=== PATIENT | male | born 1980 | race Caucasian/White ===

== ENCOUNTER 2025-01-03 03:55 | Day surgery (SDC) | payer OTHER ==
[2025-01-03] VITALS (194 sets, daily range): BP systolic 95–135; BP diastolic 50–82
[~2025-01-03] VITALS: Ht 185.4 cm; Wt 81.0 kg
[~2025-01-03 03:55] MED LIST: CLONIDINE0.1 MG PO; KLONOPIN2 MG PO; NALTREXONE50 MG PO
[2025-01-03] MEDS ORDERED: SODIUM CHLORIDE 0.9% 1,000 ML IV PRN ×2 (07:00→14:00)
--- NOTE | 2025-01-03 07:00 | NUR ---
Arrival & Pre-treatment Patient arrived to the ANR suite, identification and demographics confirmed. Patient to room 8, AAO, ambulatory, vitals obtained, ID/allergy/fall bands placed, changed into hospital gown, SEVEN hose, and non-slip socks. Procedure and timeline explained for treatment and discharge. All questions answered and the patient presents no concerns at this time.
[2025-01-03] MEDS ORDERED: diazePAM 5 MG/TAB PO PRN ×2 (07:30→08:30)
[2025-01-03] MEDS ORDERED: PANTOPRAZOLE SODIUM Sesquihydr 40 MG/TAB PO PRN (07:30)
[2025-01-03] MEDS ORDERED: FAMOTIDINE 20 MG/TAB PO PRN (07:30)
[2025-01-03] MEDS ORDERED: LACTATED RINGER'S 1,000 ML IV PRN ×2 (07:30→08:55)
[2025-01-03] MEDS ORDERED: ALBUTEROL SULFATE 2.5 MG VIAL IN PRN (07:30)
[2025-01-03] MEDS ORDERED: SCOPOLAMINE 1.5 MG DIS TD PRN (07:30)
[2025-01-03] MEDS ORDERED: cloNIDine HCL 0.1 MG/TAB PO PRN (07:30)
[2025-01-03] MEDS ORDERED: CYANOCOBALAMIN 500 MCG/TAB ( B12) PO PRN (07:30)
[2025-01-03] MEDS ORDERED: DEXMEDETOMIDINE HCL IN SODIUM 100 ML IV SCH (07:40)
--- NOTE | 2025-01-03 07:45 | NUR ---
telephoned with patient intake information including usage, dose, last dose/time taken and initial vital signs. Patient history and allergies reviewed with MD. Orders received for 10mg PO Valium and 0.3 mg PO Clonidine now. Will reassess per protocol in 1.5 hours and update MD with assessment and vitals. Patient medicated per MD orders. In addition to Clonidine and Valium, patient received 1000 mcg B12 PO, 20 mg Pepcid PO, and Scopolamine TD patch. Medication indication and education provided prior to administration.
[2025-01-03] MEDS ORDERED: ASCORBIC ACID 4,000 MG in SODIUM CHLORIDE 0.9% 1,000 ML IV SCH (08:00)
[2025-01-03 08:11] LABS: BASO% 0.3 % (0-3); EOS% 4.3 % (0-8); HEMATOCRIT 38.7 % (39.0-50.0); HEMOGLOBIN 13.3 g/dl (14.0-18.0); IMMATURE GRANULOCYTES 0.6 % (0.0-5.0); LYMPH% 35.5 % (15-41); MEAN CORPUSCULAR HGB CONC 34.4 g/dL CAL (32.0-36.0); MONO% 6.4 % (2-13); NEUT# 4.72 thou/uL (1.82-7.42); NEUT% 52.9 % (42-76); RED BLOOD COUNT 4.16 mill/uL (4.70-6.10); RED CELL DISTRI WIDTH 11.9 % (11.5-15.5)
--- NOTE | 2025-01-03 08:21 | NUR ---
Patient resting comfortably in bed. Easily aroused, maintains focus, and drifts back to sleep. No signs of active withdrawal or distress noted at this time. Continuous SPO2, rhythm, and respiratory monitoring initiated. IVF @ 250 mL/HR, room air, VSS.
[2025-01-03 08:36] LABS: ALBUMIN 4.1 g/dL (3.2-5.0); CREATININE 0.8 mg/dL (0.7-1.3)
[2025-01-03 08:40] LABS: BILIRUBIN, TOTAL 0.4 mg/dL (0.2-1.3); POTASSIUM 4.3 mmol/l (3.5-5.1)
[2025-01-03] MEDS ORDERED: SODIUM CHLORIDE 0.9% 250 ML IV PRN (08:55)
[2025-01-03] MEDS ORDERED: OCTREOTIDE ACETATE 100 MCG/VIAL SDV SC PRN (08:55)
[2025-01-03] MEDS ORDERED: SUCCINYLCHOLINE CHLORIDE 20 MG/ML 10ML VIAL IV PRN (08:55)
[2025-01-03] MEDS ORDERED: MIDAZOLAM HCL 2 MG/2 ML VIAL IV PRN ×3 (08:55→14:00)
[2025-01-03] MEDS ORDERED: cloNIDine HCL 0.1 MG/TAB VT PRN (08:55)
[2025-01-03] MEDS ORDERED: cloNIDine HYDROCHLORIDE 100 MCG/ML 10 ML INJ IV PRN (08:55)
[2025-01-03] MEDS ORDERED: THIAMINE HCL 100 MG/ML 2ML VIAL IV PRN (08:55)
[2025-01-03] MEDS ORDERED: ONDANSETRON HCl 4 MG/2 ML SDV IV PRN ×3 (08:55→19:00)
[2025-01-03] MEDS ORDERED: PROPOFOL 10 MG/ML 100ML VIAL IV PRN (08:55)
[2025-01-03] MEDS ORDERED: NALTREXONE HCL 50 MG/TAB VT PRN (08:55)
[2025-01-03] MEDS ORDERED: ROCURONIUM BROMIDE 10 MG/ML 5 ML VIAL IV PRN (08:55)
[2025-01-03] MEDS ORDERED: diazePAM 5 MG/TAB VT PRN (08:55)
[2025-01-03] MEDS ORDERED: LIDOCAINE HCL 1% (10MG/ML) 100 MG/10 ML MDV VT PRN ×2 (08:55)
[2025-01-03] MEDS ORDERED: DiphenhydrAMINE HCL 50 MG/ML SDV IV PRN (08:55)
[2025-01-03] MEDS ORDERED: MAGNESIUM SULFATE HEPTAHYDRATE 100 ML IV PRN (08:55)
[2025-01-03] MEDS ORDERED: POTASSIUM CHLORIDE 20 MEQ/100 ML BAG IV PRN (08:55)
[2025-01-03] MEDS ORDERED: PROPOFOL 100 ML IV PRN (08:55)
[2025-01-03] MEDS ORDERED: STERILE WATER FOR IRRIGATION 1,000 ML BTL IR PRN (08:55)
[2025-01-03] MEDS ORDERED: LIDOCAINE HCL 1% (10MG/ML) 100 MG/10 ML MDV IV PRN (08:55)
--- NOTE | 2025-01-03 09:48 | NUR ---
Patients vital signs within pre-treatment parameters for 1.5 hour recheck. No indication for additional Valium or Clonidine as patient is resting comfortably and vital signs are within range.
[2025-01-03] MEDS ORDERED: PHENYLEPHRINE HCL 10 MG in DEXTROSE 5% 250 ML IV SCH (10:00)
--- NOTE | 2025-01-03 10:45 | NUR ---
Induction Note Patient to ANR procedure room. Time out performed at 1045. Patient placed on monitors, Gwendolyn hugger, bilateral wrist restraints applied for ET tube protection. Versed 5mg given IV push at 1115. Tourniquet applied to RIGHT arm Lidocaine 100mg given at 1116 IV push followed by Rocoronium 10mg at 1117 IV push and held for 90 seconds. Propofol bolus of 160mg given at 1119 IV push. Succinylcholine 100mg given IV push at 1120. Smooth intubation with 7.5 ETT. Positive CO2. Positive Auscultation for air exchange. Patient placed on ventilator for spontaneous ventilation. Placed on Propofol IV drip at 1121. OG inserted. Positive air on auscultation. Positive gastric content. Stomach washed at this time.
--- NOTE | 2025-01-03 11:35 | NUR ---
OG close note Stomach washed at this time. Naltrexone 50 mg with Clonidine 0.1 mg via OG tube. OG will be clamped for 45 minutes.
--- NOTE | 2025-01-03 12:20 | NUR ---
OG open note OG open at this time. Gastric content draining into drainage bag. OG to drain for 45 minutes. Propofol will be titrated down based on patient.
--- NOTE | 2025-01-03 13:05 | NUR ---
OG close note Stomach washed at this time. Naltrexone 50 mg with Clonidine 0.1 mg via OG tube. OG will be clamped for 45 minutes.
[2025-01-03] MEDS ORDERED: NALTREXONE50 MG PO (13:48)
[2025-01-03] MEDS ORDERED: KLONOPIN2 MG PO (13:48)
[2025-01-03] MEDS ORDERED: CLONIDINE0.1 MG PO (13:48)
[2025-01-03] MEDS ORDERED: clonazePAM 1 MG/TAB PO PRN (14:00)
--- NOTE | 2025-01-03 14:35 | NUR ---
WAITING / NO CLOSE SN SPOKE WITH DR. BURR. NO ADDITIONAL MEDS ORDERED AT THIS TIME.
--- NOTE | 2025-01-03 16:30 | NUR ---
OG close note Stomach washed at this time. Naltrexone 12.5 mg with Clonidine 0 mg via OG tube. OG will be clamped for 45 minutes.
--- NOTE | 2025-01-03 17:15 | NUR ---
OG open note OG open at this time. Gastric content draining into drainage bag. OG to drain. Propofol will be titrated down based on patient.
--- NOTE | 2025-01-03 17:20 | NUR ---
Extubation note Closing medications given Benadryl 50mg IV push, Decadron 10mg IV push,Magnesium 4 grams IV, Zofran 8mg IV push, Octreotide 100mcg SC. Stomach washed out prior to extubation. Suctioned gastric content. OG removed. Patient extubated. Propofol Discontinued. Wrist restraints removed. Gwendolyn hugger Removed. See ANR Moderate sedate recovery record for further notes and assessment.
--- NOTE | 2025-01-03 17:42 | NUR ---
SN SPOKE WITH PATIENTS X- , FEBRUARY. UPDATE ON PATIENTS STATUS PROVIDED. INFORMED FEBRUARY THAT MATTHEW KENT RN WILL REACH OUT TO HER TOMORROW WITH A PATIENT UPDATE AND D/C TIME. DAQUAN VERBALIZED UNDERSTANDING.
--- NOTE | 2025-01-03 17:49 | NUR ---
TRANSER NOTE Patient transferred to medical-surgical unit. Report given to receiving nurse at bedside. Treatment, medications, I/O, IV access reviewed with RN. All questions answered. IVF to continue at 100 ml/hr, NC @ 2L, no adventitious breath sounds. Safety precautions in place, bed locked and in lowest position, call light in reach.
[2025-01-03] MEDS ORDERED: ACETAMINOPHEN 500 MG TAB PO PRN (19:00)
[2025-01-03] MEDS ORDERED: ACETAMINOPHEN 1,000 MG/100 ML VIAL IV PRN (19:00)
[2025-01-03] MEDS ORDERED: PROMETHAZINE HCL 25 MG in SODIUM CHLORIDE 0.9% 50 ML IV PRN (19:00)
[2025-01-03] MEDS ORDERED: KETOROLAC TROMETHAMINE 30 MG/ML SDV IV PRN (19:00)
[2025-01-03] MEDS ORDERED: PROMETHAZINE HCL 12.5 MG in SODIUM CHLORIDE 0.9% 50 ML IV PRN (19:00)
[2025-01-03] MEDS ORDERED: HALOPERIDOL LACTATE 5 MG/ML SDV IV PRN ×2 (19:00→19:55)
--- NOTE | 2025-01-03 19:30 | NUR ---
RECEIVED REPORT FROM ANR NURSE NORMA MCALLISTER. PT NOTE DLAYING IN BED SUPINE, SLEPEING AT THIS TIME. RM AIR. NURSING ASSESSMENT COMPLETED, IVF RUNNING PER EMAR. VSS. NO S/S OF DISTRESS. BED ALARM ON AND SAFETY PRECAUTIONS IN PLACE.
--- NOTE | 2025-01-03 20:39 | NUR ---
PT BEGAN TOSSING AND TURNING IN BED, STARTED MOANING AND GOANING. WHEN MENTAL RETARDATION NURSE CHECKED ON PT, PT ASKED "WHY AM I AWAKE?" INFOMRED PT HE IS IN RECOVERY NOW AND WAKING UP THROUGHOUT NIGHT IS NORMAL. PT THEN STATED "NO I WAS TOLD I'D SLEEP ALL DAY" INFOMRED PT THEY WERE PUT TO SLEEP DURING PROCEDURE BUT WILL NOT BE UNDER ANESTHIA FOR RECOVERY PORTION. DID ADMINISTERED PRN MED FOR LYNNE DUE TO PT PRESENTING LYNNE AND RESTLESS AT THE TIME. ASSISTED WITH REPOSITIONING PT IN BED ON LT SIDE, ENCOURAGED REST AND SLEEP. IVF RUNNING PER EMAR. NO S/S OF DISTRESS. BED ALARM ON AND SAFETY PRECAUTIONS IN PLACE.
[2025-01-03] MEDS ORDERED: PATIENT' OWN MED CONTROLLED 1 EA DOSE IV PRN (21:00)
[2025-01-03] MEDS ORDERED: cloNIDine HCL 0.1 MG/TAB PO SCH (23:00)
--- NOTE | 2025-01-04 | NUR ---
SCHEUDLED MEDS ADMINISTERED PER EMAR, PT TOLERATED WELL. PT C/O BACK PAIN PRN MED ADMISNITERED PER EMAR AND STAFF ASSISTED WITH RPEOSITIONING PT ONTO LT SIDE AND PILLOWS ADDED FOR COMFORT TO ASSIST WITH BACK PAIN. PT LAYING IN BED ON LT SIDE RESTING COMFORTABLY AT THIS TIME. VSS. NO S/S OF DISTRESS. CALL LIGHT WITHIN REACH, BED ALARM ON AND SAFETY PRECAUTIONS IN PLACE.
[2025-01-04 03:44] VITALS: BP 117/64
[2025-01-04] MEDS ORDERED: cloNIDine HCL 0.1 MG/TAB PO PRN (04:00)
[2025-01-04] MEDS ORDERED: clonazePAM 1 MG/TAB PO PRN ×2 (04:00→08:00)
[2025-01-04] MEDS ORDERED: NALTREXONE HCL 50 MG/TAB PO SCH (04:00)
--- NOTE | 2025-01-04 04:30 | NUR ---
ADMINSITERED SCHEDULED MEDS PER EMAR. PT TOLERATED WELL, DENIES ANY N/V/P. PT IS EASILY AROUSABLE, A/OX3. PT C/O MILD BACK PAIN. ADMISNITERED PRN MED FOR PAIN. PT REQUESTED TO USE URINAL. SOPHIA ASSISTED, PT VOIDED W/O DIFFICULTY. PT LAYING IN BED ON RT SIDE, IVF RUNNING PER EMAR. VSS. NO S/S IF DISTRESS. CALL LIGHT WITHIN REACH, BED ALARM ON AND SAFETY PRECAUTIONS IN PLACE.
[2025-01-04 07:08] LABS: BASO% 0.1 % (0-3); HEMATOCRIT 36.7 % (39.0-50.0); HEMOGLOBIN 12.5 g/dl (14.0-18.0); IMMATURE GRANULOCYTES 0.3 % (0.0-5.0); LYMPH% 11.9 % (15-41); MEAN CELL VOLUME 92.4 fL CALC (80.0-100.0); MEAN CORPUSCULAR HGB 31.5 pG CALC (26.0-32.0); MEAN CORPUSCULAR HGB CONC 34.1 g/dL CAL (32.0-36.0); MONO% 4.4 % (2-13); NEUT# 11.19 thou/uL (1.82-7.42); NEUT% 83.3 % (42-76); RED BLOOD COUNT 3.97 mill/uL (4.70-6.10); RED CELL DISTRI WIDTH 11.7 % (11.5-15.5)
[2025-01-04 07:29] LABS: ALBUMIN 3.3 g/dL (3.2-5.0); CREATININE 0.7 mg/dL (0.7-1.3); MAGNESIUM 2.3 mg/dL (1.6-2.3); POTASSIUM 4.3 mmol/l (3.5-5.1); TOTAL PROTEIN 6.1 g/dL (6.3-8.2)
[2025-01-04 07:39] LABS: BILIRUBIN, TOTAL 0.6 mg/dL (0.2-1.3)
--- NOTE | 2025-01-04 07:59 | NUR ---
patient resting in bed; room air; breathing unlabored; denied any n/d/v at this time; no s.s of distress;iv site clean and intact running with Lr @100; personal items in anr locker; head to toe completed; encouraged to eat breakfast; tolerated medications with no issues; call light within reach; bed in lowest postion; bed alarm actiavted; labs and status of patient was called to provider; no complaints at this time
[2025-01-04] MEDS ORDERED: cloNIDine HCL 0.1 MG/TAB PO SCH (08:00)
[2025-01-04] MEDS ORDERED: PANTOPRAZOLE SODIUM Sesquihydr 40 MG/TAB PO SCH (08:00)
[2025-01-04] MEDS ORDERED: ACETAMINOPHEN 325 MG/TAB PO SCH (08:00)
[2025-01-04 08:17] VITALS: BP 110/67
[2025-01-04] MEDS ORDERED: ACETAMINOPHEN 500 MG TAB PO PRN (09:00)
[2025-01-04] MEDS ORDERED: Cholecalciferol 2,000 UNIT/TAB PO PRN (09:00)
[2025-01-04] MEDS ORDERED: MAGNESIUM OXIDE 400 MG/TAB PO PRN (09:00)
--- NOTE | 2025-01-04 09:10 | NUR ---
notified provider that patient had some moments of sneeezing and moisture on face; provider aware no new orders at this time
--- NOTE | 2025-01-04 12:08 | NUR ---
patient a/o x3; room air; breathing unlabored; dneied any pain; jim garces n/d/v at this time; no complaits; educated to try to eat some lunch; iv site clean and intact running with ns @100; call light within reach,verbalized understanding on how to use, personal items in anr locker; bed in lowest postion; saftey measures in place
--- NOTE | 2025-01-04 12:55 | NUR ---
patient vaughn getting dressed with his personal clothes, loc came and talked to patient, patient personal clothes and cellphone was returned to patient
--- NOTE | 2025-01-04 13:57 | NUR ---
patient tolerated discharge medications with no issues
--- NOTE | 2025-01-04 15:05 | NUR ---
IV site discontinued, cath intact. No edema , no redness, voices no discomfort. Discharge instructions given. Patient verbalizes understanding of same. Discharged in stable condition via Ambulatory to Home with family. All belongings sent with pt.
== END 2025-01-04 15:02 | disposition home or self-care (01) | DRG 897 ==
LOC: ANR 03:55 → MS2 03:55 → ANR 08:00
PROVIDERS: ATTEND Anesthesiology Critical Care Medicine
DX: F11.20 Opioid dependence, uncomplicated (principal)
CPT/HCPCS: J0131; J1100; J1200; J2354; J2405; J2704; J3411; J3475; J3480